=== PATIENT | female | born 1975 | race Caucasian/White ===

== ENCOUNTER 2016-10-13 07:29 | Inpatient (IN) | payer OTHER ==
[~2016-10-13] VITALS: Ht 154.9 cm; Wt 66.0 kg
[2016-10-13] VITALS (23 sets, daily range): BP systolic 98–164; BP diastolic 46–69
[~2016-10-13 07:29] MED LIST: Micronor,Nor-Q-D,Err PO; Motrin PO
[2016-10-13] MEDS ORDERED: ZANTAC75 M1 PO (08:06)
[2016-10-13 09:08] LABS: EOSINOPHIL (%) 0.8 % (0-5); EOSINOPHIL COUNT 0.1 K/uL (0-0.3); HEMATOCRIT 33.9 % (36.0-46.0); IMMATURE GRANULOCYTE COUNT 0.1 K/uL; INSTRUMENT ABS NEUTROPHIL CT 7.5 K/uL; LYMPHOCYTE COUNT 1.6 K/uL (1.0-2.8); MCH 28.7 PG (29.0-34.0); MCHC 31.9 G/DL (30.0-36.0); MCV 90.2 FL (83-99); MEAN PLAT.VOLUME 9.5 uM^3 (9.5-12.4); MONOCYTE COUNT 0.7 K/uL (0-0.8); NEUTROPHIL (%) 74.9 % (45-76); NEUTROPHIL COUNT 7.5 K/uL (1.8-6.4); PLATELET COUNT 160 K/uL (156-360); RBC DIS.WIDTH-CV 13.3 % (11.8-14.6); RBC DIS.WIDTH-SD 43.8 % (39-53); RED BLOOD COUNT 3.76 M/uL (3.80-5.20)
[2016-10-13 21:44] LABS: EOSINOPHIL (%) 0.2 % (0-5); EOSINOPHIL COUNT 0.1 K/uL (0-0.3); HEMATOCRIT 30.1 % (36.0-46.0); IMMATURE GRANULOCYTE (%) 0.8 % (0.0-0.7); IMMATURE GRANULOCYTE COUNT 0.2 K/uL; INSTRUMENT ABS NEUTROPHIL CT 17.5 K/uL; LYMPHOCYTE COUNT 2.2 K/uL (1.0-2.8); MCH 29.8 PG (29.0-34.0); MCHC 33.2 G/DL (30.0-36.0); MCV 89.6 FL (83-99); MEAN PLAT.VOLUME 10.3 uM^3 (9.5-12.4); MONOCYTE (%) 6.1 % (3-12); MONOCYTE COUNT 1.3 K/uL (0-0.8); NEUTROPHIL (%) 82.5 % (45-76); NEUTROPHIL COUNT 17.5 K/uL (1.8-6.4); PLATELET COUNT 162 K/uL (156-360); RBC DIS.WIDTH-CV 13.4 % (11.8-14.6); RBC DIS.WIDTH-SD 44.2 % (39-53); RED BLOOD COUNT 3.36 M/uL (3.80-5.20); WHITE BLOOD COUNT 21.3 K/uL (4.1-10.2)
[2016-10-14] VITALS: BP 117/57
[2016-10-14 02:33] VITALS: BP 91/52
[2016-10-14 07:28] LABS: EOSINOPHIL (%) 0.2 % (0-5); HEMATOCRIT 23.9 % (36.0-46.0); IMMATURE GRANULOCYTE (%) 1.6 % (0.0-0.7); IMMATURE GRANULOCYTE COUNT 0.3 K/uL; INSTRUMENT ABS NEUTROPHIL CT 16.9 K/uL; LYMPHOCYTE COUNT 1.9 K/uL (1.0-2.8); MCH 30.2 PG (29.0-34.0); MCHC 33.5 G/DL (30.0-36.0); MCV 90.2 FL (83-99); MEAN PLAT.VOLUME 10.7 uM^3 (9.5-12.4); NEUTROPHIL (%) 83.6 % (45-76); NEUTROPHIL COUNT 16.9 K/uL (1.8-6.4); PLATELET COUNT 141 K/uL (156-360); RBC DIS.WIDTH-CV 13.5 % (11.8-14.6); RBC DIS.WIDTH-SD 44.3 % (39-53); WHITE BLOOD COUNT 20.2 K/uL (4.1-10.2)
[2016-10-14 07:30] LABS: RED BLOOD COUNT 2.65 M/uL (3.80-5.20)
[2016-10-14 11:41] VITALS: BP 105/55
[2016-10-14 14:02] VITALS: BP 101/57
[2016-10-14 22:30] VITALS: BP 106/53
[2016-10-15 07:15] VITALS: BP 107/55
[2016-10-15 07:16] VITALS: BP 107/55
[2016-10-15 14:48] VITALS: BP 100/50
[2016-10-21] MEDS ORDERED: IRON325 M1 PO (14:20)
[2016-10-21] MEDS ORDERED: PRENATAL TABLE1 EACH PO (14:21)
[2016-10-21] MEDS ORDERED: MOTRIN800 MG PO (14:21)
[2016-10-21] MEDS ORDERED: STOOL SOFTENER100 M1 PO (14:21)
== END 2016-10-15 17:00 | disposition home or self-care (01) | DRG 775 ==
LOC: LDRP-OP 07:29 → 2WEST 07:30 → LDRP-OP 09:31 → 2WEST 16:24 → LDRP-OP 19:24 → 2WEST 10-15 17:00 → LDRP-OP 11-18 20:34
PROVIDERS: Advanced Practice Midwife
PROC: 0HQ9XZZ Repair Perineum Skin, External Approach (ICD-10-PCS; principal; 2016-10-13)
PROC: 10907ZC Drainage of Amniotic Fluid, Therapeutic from Products of Conception, Via Natural or Artificial Opening (ICD-10-PCS; principal; 2016-10-13)
PROC: 3E033VJ Introduction of Other Hormone into Peripheral Vein, Percutaneous Approach (ICD-10-PCS; principal; 2016-10-13)
PROC: 10E0XZZ Delivery of Products of Conception, External Approach (ICD-10-PCS; principal; 2016-10-13)
PROC: 0UJD7ZZ Inspection of Uterus and Cervix, Via Natural or Artificial Opening (ICD-10-PCS; principal; 2016-10-13)
DX: O40.3XX0 Polyhydramnios, third trimester, not applicable or unspecified (principal); D62 Acute posthemorrhagic anemia; O75.89 Other specified complications of labor and delivery; O99.02 Anemia complicating childbirth; O43.193 Other malformation of placenta, third trimester; O76 Abnormality in fetal heart rate and rhythm complicating labor and delivery; O70.0 First degree perineal laceration during delivery; O69.1XX0 Labor and delivery complicated by cord around neck, with compression, not applicable or unspecified; Z3A.40 40 weeks gestation of pregnancy; Z37.0 Single live birth; O09.523 Supervision of elderly multigravida, third trimester; O99.824 Streptococcus B carrier state complicating childbirth; E66.3 Overweight; Z87.891 Personal history of nicotine dependence
CPT/HCPCS: 76856; 76857; 85025; 85025 91; 86900; 86901; 88307; C1755; J2540; J2590; J3010; J7120

== ENCOUNTER 2016-10-22 05:40 | Day surgery (SDC) | payer OTHER ==
[~2016-10-22] VITALS: Ht 154.9 cm; Wt 70.8 kg
[~2016-10-22 05:40] MED LIST changes: +IRON325 M1 PO; +MOTRIN800 MG PO; +PRENATAL TABLE1 EACH PO; +STOOL SOFTENER100 M1 PO; +ZANTAC75 M1 PO
[2016-10-22 06:06] LABS: EOSINOPHIL (%) 1.8 % (0-5); EOSINOPHIL COUNT 0.2 K/uL (0-0.3); HEMATOCRIT 26.7 % (36.0-46.0); IMMATURE GRANULOCYTE (%) 1.8 % (0.0-0.7); IMMATURE GRANULOCYTE COUNT 0.2 K/uL; INSTRUMENT ABS NEUTROPHIL CT 8.1 K/uL; LYMPHOCYTE COUNT 3.1 K/uL (1.0-2.8); MCH 29.2 PG (29.0-34.0); MCHC 31.5 G/DL (30.0-36.0); MCV 92.7 FL (83-99); MONOCYTE (%) 5.8 % (3-12); MONOCYTE COUNT 0.7 K/uL (0-0.8); NEUTROPHIL (%) 65.5 % (45-76); NEUTROPHIL COUNT 8.1 K/uL (1.8-6.4); RBC DIS.WIDTH-CV 14.9 % (11.8-14.6); RBC DIS.WIDTH-SD 47.4 % (39-53); WHITE BLOOD COUNT 12.4 K/uL (4.1-10.2)
[2016-10-22 06:07] LABS: PLATELET COUNT 328 K/uL (156-360); RED BLOOD COUNT 2.88 M/uL (3.80-5.20)
[2016-10-22 06:16] VITALS: BP 102/53
[2016-10-22 11:00] VITALS: BP 121/60
[2016-10-22 11:10] LABS: BASOPHIL COUNT 0.1 K/uL (0-0.1); EOSINOPHIL (%) 0.2 % (0-5); IMMATURE GRANULOCYTE (%) 3.1 % (0.0-0.7); IMMATURE GRANULOCYTE COUNT 0.7 K/uL; INSTRUMENT ABS NEUTROPHIL CT 21.5 K/uL; LYMPHOCYTE COUNT 1.1 K/uL (1.0-2.8); MCH 29.3 PG (29.0-34.0); MCHC 32.8 G/DL (30.0-36.0); MCV 89.2 FL (83-99); MONOCYTE (%) 1.1 % (3-12); MONOCYTE COUNT 0.3 K/uL (0-0.8); NEUTROPHIL (%) 90.9 % (45-76); NEUTROPHIL COUNT 21.5 K/uL (1.8-6.4); RBC DIS.WIDTH-CV 14.4 % (11.8-14.6); RBC DIS.WIDTH-SD 45.5 % (39-53); WHITE BLOOD COUNT 23.7 K/uL (4.1-10.2)
[2016-10-22 11:12] LABS: RED BLOOD COUNT 4.37 M/uL (3.80-5.20)
[2016-10-22 11:33] LABS: MEAN PLAT.VOLUME 9.1 uM^3 (9.5-12.4); PLATELET COUNT 214 K/uL (156-360)
[2016-10-22 11:55] VITALS: BP 105/64
[2016-10-22 16:21] LABS: EOSINOPHIL (%) 0 % (0-5); HEMATOCRIT 33.4 % (36.0-46.0); IMMATURE GRANULOCYTE (%) 2.3 % (0.0-0.7); IMMATURE GRANULOCYTE COUNT 0.5 K/uL; INSTRUMENT ABS NEUTROPHIL CT 18.3 K/uL; LYMPHOCYTE COUNT 1.2 K/uL (1.0-2.8); MCH 29.8 PG (29.0-34.0); MCHC 34.1 G/DL (30.0-36.0); MCV 87.4 FL (83-99); MEAN PLAT.VOLUME 9.1 uM^3 (9.5-12.4); MONOCYTE (%) 1.3 % (3-12); MONOCYTE COUNT 0.3 K/uL (0-0.8); NEUTROPHIL (%) 90.4 % (45-76); NEUTROPHIL COUNT 18.3 K/uL (1.8-6.4); PLATELET COUNT 221 K/uL (156-360); RBC DIS.WIDTH-CV 14.5 % (11.8-14.6); RED BLOOD COUNT 3.82 M/uL (3.80-5.20); WHITE BLOOD COUNT 20.2 K/uL (4.1-10.2)
[2016-10-22 18:22] VITALS: BP 101/68
[2016-10-23 07:11] LABS: HEMATOCRIT 30.4 % (36.0-46.0); MCH 29.8 PG (29.0-34.0); MCHC 33.6 G/DL (30.0-36.0); MCV 88.9 FL (83-99); MEAN PLAT.VOLUME 9.1 uM^3 (9.5-12.4); PLATELET COUNT 184 K/uL (156-360); RBC DIS.WIDTH-CV 15.3 % (11.8-14.6); RBC DIS.WIDTH-SD 48.4 % (39-53); RED BLOOD COUNT 3.42 M/uL (3.80-5.20); WHITE BLOOD COUNT 12.1 K/uL (4.1-10.2)
[2016-10-23 07:42] VITALS: BP 103/59
== END 2016-10-23 10:45 | disposition home or self-care (01) ==
LOC: SDC 05:40 → 2SOUTH 09:30 → 2WEST 09:30 → SDC 13:28 → 2WEST 10-23 10:45
PROVIDERS: Obstetrics & Gynecology
PROC: 10D17ZZ Extraction of Products of Conception, Retained, Via Natural or Artificial Opening (ICD-10-PCS; principal; 2016-10-22)
DX: O72.0 Third-stage hemorrhage (principal); D62 Acute posthemorrhagic anemia; F17.210 Nicotine dependence, cigarettes, uncomplicated
CPT/HCPCS: 85025; 85025 91; 85027; 86900; 86901; 86920; 88305; G0378; J0131; J0690; J1100; J1170; J1885; J2175; J2250; J2405; J3010; J7120; P9016; P9017